=== PATIENT | female | born 1985 | race Caucasian/White ===

== ENCOUNTER 2017-09-12 15:33 | Emergency (ER) | payer MEDICAID ==
[~2017-09-12] VITALS: Ht 167.6 cm; Wt 59.0 kg
[2017-09-12 16:11] VITALS: BP 140/76
== END 2017-09-12 16:30 | disposition home or self-care (01) ==
LOC: ER 15:33
DX: L27.0 Generalized skin eruption due to drugs and medicaments taken internally (principal); L27.2 Dermatitis due to ingested food; J02.9 Acute pharyngitis, unspecified